=== PATIENT | male | born 1955 | race Two or more races ===

== ENCOUNTER 2024-03-14 04:30 | Day surgery (SDC) | payer OTHER ==
[2024-03-08 08:20] LABS: HEMATOCRIT 44.7 % (39.0-48.0); HEMOGLOBIN 15.3 g/dL (13-16.00); MEAN CELL VOLUME 90.9 fL (80.0-100.00); MEAN CORPUSCULAR HEMOGLOBIN 31.1 pg (27.00-32.0); MEAN CORPUSCULAR HGB CONC 34.2 g/dl (32.0-36.0); PLATELET COUNT 266 K/uL (150-450); RED BLOOD COUNT 4.92 M/uL (4.00-6.00); RED CELL DISTRIBUTION WIDTH 13.7 % (11.5-14.5)
[2024-03-08 08:25] LABS: URINE APPEARANCE Clear; URINE BILIRRUBIN Negative (NEGATIVE); URINE BLOOD Trace; URINE COLOR Yellow; URINE GLUCOSE Negative (NEGATIVE); URINE KETONE Negative (NEGATIVE); URINE LEUKOCYTE Negative; URINE NITRATE Negative; URINE PROTEIN Negative (NEGATIVE); URINE UROBILINOGEN 0.2 E.U./dl
[2024-03-08 08:27] LABS: URINE RBC 11.2 uL (0.0-20.8)
[2024-03-08 08:41] LABS: URINE WBC 1.2 uL (0.0-23.2)
[2024-03-08 09:00] LABS: INR 0.98; PARTIAL THROMBOPLASTIN TIME 28.2 SECONDS (22.0-34.0); PROTHROMBIN TIME 10.7 SECONDS (9.0-11.5)
[2024-03-08 09:05] LABS: ALBUMIN 4.5 gm/dL (3.4-5.0); BILIRUBIN TOTAL 0.79 mg/dL (0.3-1.2); CALCIUM 9.9 mg/dL (8.5-10.1); CREATININE SERUM 1.11 mg/dL (0.70-1.30); GFR 65.49; GLOBULINA 3.8 G/DL (2.4-3.5); POTASSIUM 4.03 mEq/L (3.5-5.1); TOTAL PROTEIN 8.3 gm/dL (6.4-8.2)
[2024-03-08 10:38] LABS: RH POSITIVE
[~2024-03-14] VITALS: Ht 172.7 cm; Wt 72.6 kg
[~2024-03-14 04:30] MED LIST: COZAAR50 MG PO; METFORMIN HCL500 M3 PO
[2024-03-14] MEDS ORDERED: CEFAZOLIN SODIUM 1,000 MG VIAL IV ONE (10:15)
[2024-03-14] MEDS ORDERED: DUI500 PO (10:15)
[2024-03-14] MEDS ORDERED: TRANEXAMIC ACID 100MG/1ML (1000MG) AMPUL IV ONE ×2 (10:45)
[2024-03-14] MEDS ORDERED: CEFADROXIL 500 MG CAPSULE PO SCH (21:00)
== END 2024-03-14 20:55 | disposition home or self-care (01) ==
LOC: CIR.AMB 04:30 → SURH 04:30 → O/R 04:30 → EDSTATUS 07:00 → SURH 07:00 → O/R 20:55 → CIR.AMB 20:55
PROVIDERS: ATTEND Orthopaedic Surgery Sports Medicine
DX: M17.11 Unilateral primary osteoarthritis, right knee (principal); Z53.09 Procedure and treatment not carried out because of other contraindication; L53.8 Other specified erythematous conditions

== ENCOUNTER 2025-02-20 08:00 | Outpatient (CLI) | payer OTHER ==
[~2025-02-20] VITALS: Ht 172.7 cm; Wt 99.8 kg
[~2025-02-20 08:00] MED LIST changes: +DUI500 PO
[2025-02-20] MEDS ORDERED: SYNTHROID100 MCG PO (08:45)
[2025-02-20] MEDS ORDERED: OZEMPIC0.25 MG/02 SQ (08:46)
[2025-02-20] MEDS ORDERED: VITAMIN D (08:46)
[2025-02-20 08:48] LABS: URINE APPEARANCE Clear; URINE BILIRRUBIN Negative (NEGATIVE); URINE BLOOD Trace; URINE COLOR Yellow; URINE GLUCOSE Negative (NEGATIVE); URINE KETONE Negative (NEGATIVE); URINE LEUKOCYTE Negative; URINE NITRATE Negative; URINE PROTEIN Negative (NEGATIVE); URINE UROBILINOGEN 0.2 E.U./dl
[2025-02-20 08:49] LABS: URINE RBC 6.8 uL (0.0-20.8); URINE WBC 1.8 uL (0.0-23.2)
[2025-02-20 08:50] VITALS: BP 162/84
[2025-02-20 08:52] LABS: BASO % 0.7 % (0.1-1.2); EOS # 0.13 (0.04-0.54); EOS % 1.2 % (0.7-7.0); LYMPH # 1.32 (1.18-3.74); LYMPH % 12.5 % (19.3-53.1); MEAN PLATELET VOLUME 9.50 fl (9.4-12.4); MONO # 0.90 (0.24-0.82); MONO % 8.5 % (4.7-12.5); NEUT # 8.07 (1.56-6.13); NEUT % 76.5 % (34.0-71.1); RED CELL DISTRIBUTION WIDTH 12.7 % (11.6-14.4)
[2025-02-20 09:10] LABS: URINE BACTERIA 3.5 uL (0.0-1933); URINE CAST 0.00 uL (0.0-1.40); URINE EPITHELIAL CELLS 0.3 uL (0.0-38.8)
[2025-02-20 09:13] LABS: INR 1.0
[2025-02-20 10:05] LABS: ALT/SGPT 45.0 U/L (12-78); AST/SGOT 23.0 U/L (15-37); BILIRUBIN TOTAL 0.68 mg/dL (0.3-1.2); BUN CREA RATIO 18.0 (7.0-25.0); CREATININE SERUM 1.09 mg/dL (0.70-1.30); GFR 66.69; GLOBULINA 3.6 G/DL (2.4-3.5); GLUCOSE FASTING 89.0 mg/dL (65-100); OSMOLALITY SERUM 293.0 MOSM/KG (275-295)
[2025-02-20 10:47] LABS: RH POSITIVE
== END 2025-02-20 08:15 | disposition home or self-care (01) ==
LOC: RAD 08:00 → SURG 02-27 07:00 → EDSTATUS 02-27 07:00
PROVIDERS: ATTEND Orthopaedic Surgery Sports Medicine
DX: M17.12 Unilateral primary osteoarthritis, left knee (principal); D68.9 Coagulation defect, unspecified